=== PATIENT | female | born 1975 | race Caucasian/White ===

== ENCOUNTER 2025-05-27 04:56 | Emergency (ER) | payer BC ==
[~2025-05-27] VITALS: Ht 177.8 cm; Wt 68.9 kg
[2025-05-27 06:22] LABS: PLATELET COUNT (AUTO) 275 K/uL (150-450); RED BLOOD CELL COUNT(AUTO) 4.07 MIL/uL (4.0-5.2); RED CELL DISTRIBUTION WIDTH 13.3 % (11.5-15.0); WHITE BLOOD COUNT (AUTO) 5.5 K/uL (4.3-11.0)
[2025-05-27 06:42] LABS: CALCIUM, SERUM 9.0 mg/dL (8.5-10.1); CREATININE 0.9 mg/dL (0.6-1.3); SODIUM SERUM 139 mmol/L (136-145); UREA NITROGEN, BLOOD 14 mg/dL (7-18)
[2025-05-27 06:55] LABS: ALCOHOL, BLOOD < 3 mg/dL (0-10); ASPARTATE AMINOTRANSFERASE 88 U/L (15-37); TOTAL PROTEIN, SERUM 7.8 g/dL (6.4-8.2)
[2025-05-27] MEDS ORDERED: LORAZEPAM 1 MG TABLET ONE (07:03)
[2025-05-27] MEDS: LORAZEPAM 1 MG TABLET PO ONE (07:04)
[2025-05-27 07:42] LABS: APPEARANCE,URINE SLIGHTLY CLOUDY (CLEAR); BLOOD, URINE NEGATIVE Ery/uL (NEGATIVE); LEUKOCYTE ESTERASE ,URINE NEGATIVE (NEGATIVE); NITRITE, URINE POSITIVE (NEGATIVE); UGLUCOSE NEGATIVE (NEGATIVE)
[2025-05-27 07:44] LABS: PREGNANCY TEST URINE QUAL NEGATIVE (NEGATIVE)
[2025-05-27 07:45] LABS: ADD URINE CULTURE YES
[2025-05-27 08:32] VITALS: BP 120/84; TEMP 97.8; O2SAT 98
== END 2025-05-27 08:00 | disposition home or self-care (01) ==
LOC: ER 05:01
DX: R09.89 Other specified symptoms and signs involving the circulatory and respiratory systems (principal); R09.A2 Foreign body sensation, throat; F10.20 Alcohol dependence, uncomplicated; F12.10 Cannabis abuse, uncomplicated; F41.9 Anxiety disorder, unspecified; Z60.2 Problems related to living alone
CPT/HCPCS: 36415; 80053-TC; 81001; 84703-TC; 85025-TC; 87086-TC; G0480